=== PATIENT | female | born 1980 | race Caucasian/White ===

== ENCOUNTER 2021-02-18 05:50 | Day surgery (SDC) | payer BC ==
[2021-02-16 14:09] LABS: Urine Appearance CLEAR (Clear); Urine Bilirubin NEGATIVE (Negative); Urine Blood NEGATIVE (Negative); Urine Color YELLOW (Yellow); Urine Glucose NEGATIVE (Negative); Urine Protein NEGATIVE (Negative); Urine Specific Gravity <=1.005 (1.005-1.030); Urine Urobilinogen 0.2 mg/dL (0.2-1.0)
[2021-02-16 14:12] LABS: Urine Microscopic Reflex NO UMIC
[2021-02-16 14:13] LABS: Absolute Lymphocytes (CBC) 1.8 K/uL (0.7-4.9); Basophils % 0.6 % (0-1.3); Hematocrit 40.3 % (36.0-45.0); Lymphocytes % 26.4 % (15.3-44.8); MPV 7.5 fL (7.6-11.3); RBC Red Blood Cell Count 4.65 M/uL (3.86-4.86)
[2021-02-18] MEDS ORDERED: SCOPOLAMINE HYDROBROMIDE PATCH TD ONE ×2 (06:35→06:47)
[2021-02-18] MEDS ORDERED: Ringers Lactate 1,000 ML IV ONE (06:47)
[2021-02-18 06:57] VITALS: O2SAT 100
[2021-02-18] MEDS: BUPIVACAINE 0.25% PF 30 ML VIAL ONE ×2 (07:46→08:09)
[2021-02-18] MEDS ORDERED: MIDAZOLAM HCL 2 MG/2 ML INJ ONE (07:54)
[2021-02-18] MEDS ORDERED: ONDANSETRON 4 MG/2 ML VIAL ONE (07:54)
[2021-02-18] MEDS ORDERED: LIDOCAINE 2% MPF 5 ML VIAL ONE (07:54)
[2021-02-18] MEDS ORDERED: dexAMETHasone 10 MG/ML VIAL ONE (07:54)
[2021-02-18] MEDS ORDERED: propofoL 200 MG/20 ML VIAL IV ONE (07:54)
[2021-02-18] MEDS ORDERED: ROCURONIUM 50 MG/5 ML VIAL IV ONE ×2 (07:54→08:51)
[2021-02-18] MEDS ORDERED: KETOROLAC 30 MG/ML INJ ONE (07:54)
[2021-02-18] MEDS ORDERED: FENTANYL CITR 100 MCG/2 ML ONE (07:54)
[2021-02-18] MEDS ORDERED: CEFAZOLIN SODIUM 1 GM/VIAL ONE (07:55)
[2021-02-18] MEDS ORDERED: NS 0.9% VIAL 10 ML ONE (07:56)
[2021-02-18] MEDS: Ringers Lactate 1,000 ML IV ONE ×3 (08:37→08:56)
[2021-02-18] MEDS ORDERED: PROMETHAZINE INJ 25 MG/ML AMP IV PRN (10:00)
[2021-02-18] MEDS ORDERED: HYDROCODONE/APAP 5/325 MG TAB PO PRN (10:00)
[2021-02-18] MEDS ORDERED: MEPERIDINE HCL 25 MG/ML SYR IM PRN (10:00)
--- NOTE | 2021-02-18 10:12 | P.BOP ---
Preoperative diagnosis: AUB-O/A, Dysmenorrhea, LLQ pain Postoperative diagnosis: same Primary procedure: TLH BS Cystoscopy Engineer Process: Cele Carreon Estimated blood loss: 100 Specimen: uterus tubes Findings: no endometriosis Anesthesia: General Complications: None Transferred to: Recovery Room Condition: Good
[2021-02-18] MEDS ORDERED: PROMETHAZINE INJ 25 MG/ML AMP ONE (10:27)
[2021-02-18] MEDS ORDERED: MEPERIDINE HCL 25 MG/ML SYR ONE (10:27)
[2021-02-18] MEDS ORDERED: GLYCOPYRROLATE 0.2 MG/ML SYR ONE (12:04)
[2021-02-18] MEDS ORDERED: NEOSTIGMINE 1 MG/ML -5 ML ONE (12:05)
[2021-02-18] MEDS ORDERED: HYDROCODONE/APAP 5/325 MG TAB ONE (12:40)
[2021-02-18 12:42] VITALS: TEMP 97.3
--- NOTE | 2021-02-18 13:35 | OP ---
Date of Procedure: 02/18/2021 Surgeon: Valery Richard MD Public Relations: Cele Luna. Preoperative Diagnoses: Menorrhagia (AUB-O/A), dysmenorrhea, and left lower quadrant pain. Postoperative Diagnoses: Menorrhagia (AUB-O/A), dysmenorrhea, and left lower quadrant pain. Procedures Performed: Total laparoscopic hysterectomy, bilateral salpingectomy, cystoscopy. Anesthesia: General endotracheal. Estimated Blood Loss: 100. Specimens: Uterus and tubes. Complications: No complications. Drains: No drains. Condition: Stable. Anesthesia: General endotracheal. Findings: Endometriosis, left ovarian cyst less than 1.5 cm small in its appearance, likely corpus l uteal. No evidence of any endometriosis other than ovary or the rest of the pelvic and peritoneum th at further will need to excise. The cyst appeared to be a physiological cyst. Both ureters were visualized in the uterus from the pelvic brim to the ureteric tunnel and there was no distortion cystoscopy. The ureters were patent and the bladder examination was normal. Indications: The patient is a 40-year-old female, presenting with all these problems as dictated in the preoperative diagnoses. She was evaluated and treated appropriately. Her periods have gotten mu ch worse over the past 8 to 9 months causing her distress. Also, she had pelvic pain all the time. It radiates to her left lower quadrant and to her back. Denied any dyspareunia or other l ower urinary tract symptoms or bowel issues. Her had a vasectomy and no plan for any future kids. Discussed about all the options. Endometrial biopsy showed chronic endometritis, treated this , but still the bleeding has not improved. She declined a Mirena. Ablation was planned with diagnos tic laparoscopic endometriosis excision, but the patient canceled this and she wanted to proceed with a hysterectomy. Given all the above problems with her hypothyroidism, she has been managed by Endoc rinology very closely and she is well managed. 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 We proceeded to bring her to the OR for a hysterectomy. An ablation with endometriosis excision and laparoscopy was also offered to the patient, but she decl ined this. We also discussed that an ablation is not an ideal procedure for long-term management of her bleeding as there is a potential for recurrence of the bleeding issue before she comes to [facility] and after hearing this, the patient was completely in favor of hysterectomy. Procedure In Detail: After informed consent was verified, 2 g of Ancef were given. She was brought back to the OR, placed in supine fashion. General anesthesia was given and placed in a dorsal lithot monty position. Arms tucked by the side. SCDs were started. Time-out was done. The abdomen, vulva, vagina, and perineum prepped and draped in a sterile fashion. Large VCare was inserted into the uterus and fixed in place. A 16-Bolivian Mccloud was inserted into the bladder and attached for retrograde filling and this area was draped. A 1 cm infraumbilical incisio n was made with a scalpel using the open laparoscopy technique. Fascia was incised, tagged with 0 Vi cryl sutures and after adequate insufflation, the patient was examined with a 10 camera. All the upp er abdominal surfaces were unremarkable and gallbladder appeared to be unremarkable as well. No evid ence of any endometriosis in the upper abdominal surfaces. She was placed in a Trendelenburg positio n and lower pelvic cavity also showed the findings as dictated above. Five left lower quadrant and 1 0 suprapubic ports were placed under direct vision. Then, left distal tube was dissected free from t he mesosalpinx. Utero-ovarian ligament and round ligament were taken down. Broad ligament was opene d up anteriorly all the way to the front of the anterior vaginal wall and then posterior to the utero sacral ligament. The broad ligament was taken down. Then, uterine vessels were exposed. The uterin e vessels were cauterized, but not cut on the opposite side. I took down the tube and detached it esperanza cedeno gave it out as a separate specimen. Then, utero-ovarian ligament and round ligament were taken bal n. The anterior broad ligament was opened up all the way to the level of the vaginal cuff, posterior broad ligament to the uterosacral ligament. After taking down the broad ligament, I was able to the expose the vessels. The vessels were taken down with the help of the bipolar curved tip, Tanesha cedeno then with vessel sealer. Once the vessels were taken down on both sides, monopolar hook blade was used to perform a circumferential colpotomy and the cardinal ligaments had to be taken separately as well. There was bleeding from this area where hemostasis was achieved eventually. The monopolar cau vahe was used to perform a colpotomy and detached the uterus from the vaginal apex. Once this was do ne, the uterus was large enough that it did not fit through the vagina. So, vaginal morcellation was performed using a 10 blade, [place] clamp and a small [place] for r etraction. Once it was morcellated, the large specimen was detached and pulled out through the vagin a and vaginal sponge was placed for occlusion. I went back up and after thorough irrigation and suction, the vaginal wall was closed with 2 angled s imple 0 Vicryl sutures and 3 [id number] in the center. Excellent closure. Good hemostasis. N o evidence of electrical, mechanical, or thermal injury to the ureters on both sides. Trocars were pulled out. Gas was desufflated. I injected the fascia and skin at both the entry and exit with 0.25% Marcaine. The 10 ports were closed with 0 Vicryl tagged sutures, tied together at th e umbilical area and the suprapubic area with simple 0 Vicryl stitch placed. Skin incision incisions closed with the help of 3-0 Vicryl in a subcuticular fashion. Mccloud was removed. Vaginal occluder was removed. Then, cystoscopy was performed with a [facility] [facility], 30-degree lens, and normal saline. There was excellent jets of urine from both ureteric orific es. The entire bladder wall was examined and did not have any evidence of trauma or foreign body. T he patient was cleaned up and woken up. She was taken to PACU in stable condition, and all instrumen t and sponge counts were correct. 100 EBL, urine output 250. The patient is stable. was debriefed on the findings of the surgery and her status. They thompson ve a 1-week followup. ELEUTERIO/GIL Voice ID: [id number] Report ID: [id number]
[2021-02-18 13:56] VITALS: BP 118/60
[2021-02-19] MEDS ORDERED: LEVOTHYROXINE SOD 0.125 MG TAB PO SCH (06:00)
== END 2021-02-18 13:50 | disposition home or self-care (01) ==
LOC: OR 05:50
PROVIDERS: ATTEND Obstetrics & Gynecology
PROC: 0UT74ZZ Resection of Bilateral Fallopian Tubes, Percutaneous Endoscopic Approach (ICD-10-PCS; 2021-02-18)
PROC: 0UT94ZZ Resection of Uterus, Percutaneous Endoscopic Approach (ICD-10-PCS; principal; 2021-02-18 07:00)
DX: D25.9 Leiomyoma of uterus, unspecified (principal); N92.1 Excessive and frequent menstruation with irregular cycle; N94.6 Dysmenorrhea, unspecified; E03.9 Hypothyroidism, unspecified; D50.9 Iron deficiency anemia, unspecified; N64.4 Mastodynia; Z20.822 Contact with and (suspected) exposure to COVID-19
CPT/HCPCS: 58571; 85025; 36415; 86900; 86850; 81025; 86901; 88307; 81003; U0003; J2704; J2550; J3010; J1100; J2175; J2710; J7120 ×2; J2405; J0690; J2250